=== PATIENT | female | born 1990 | race Caucasian/White ===

== ENCOUNTER → 2018-11-28 12:50 | Outpatient (CLI) | payer OTHER, SELFPAY ==
--- NOTE | 2018-11-28 | DI.RAD.S_ITS ---
PROCEDURE: XR HUMERUS LT 2V INDICATIONS: NEXPLANON PLACEMENT TECHNIQUE: 2 views of the humerus were acquired. COMPARISON: None. FINDINGS: Bones: No fractures or dislocations. No suspicious bony lesions. Soft tissues: No suspicious soft tissue calcifications. A linear 4.5 cm foreign body is present in the medial subcutaneous tissues of the arm at the mid humeral level. IMPRESSION: Linear foreign body consistent with implanted device present in the medial left mid arm arm soft tissues. Dictated by: Shirley Merchant M.D. on 11/28/2018 at 15:23 Approved by: Shirley Merchant M.D. on 11/28/2018 at 15:26
== END ==
PROVIDERS: PCP Family Medicine; Visit Provider Family Medicine
DX: Z30.46 Encounter for surveillance of implantable subdermal contraceptive (principal)
CPT/HCPCS: 73060

== ENCOUNTER 2018-12-22 14:25 | Day surgery (SDC) | payer OTHER, SELFPAY ==
[2018-12-22] VITALS (7 sets, daily range): BP systolic 99–128; BP diastolic 64–79; PULSE 59–67; RESP 11–17; TEMP 36.1–37; O2SAT 95–100; BMI 26.8
--- NOTE | 2018-12-22 14:51 | PM.PREOP ---
Pre-operative Note Interval Note History & Physical reviewed/Exam performed by Physician: Yes Changes to H&P: No H&P completed within 30 days and has changed as indicated here:: see 12/19/18 outpt note
[2018-12-22] MEDS: LACTATED RINGERS 1,000 ML 42 ML IV (15:03)
--- NOTE | 2018-12-22 15:31 | SUR.OPER ---
Supine on padded OR bed, head on pillow, Right arm padded and tucked at side, left arm on large padded arm board controlled by surgeon, legs uncrossed, safety belt at thigh.
[2018-12-22] MEDS: BUPIVACAINE 0.5% W/ EPI (PF) VIAL 30 ML INJ (15:36)
--- NOTE | 2018-12-22 15:55 | SUR.OPER ---
mini c-arm used for case. time = 2:16.
--- NOTE | 2018-12-22 16:08 | P.OP_ITS ---
Operative Date/Time/Diagnoses Date of procedure: 12/22/18 Time of procedure: 16:06 Pre-op diagnosis: Retained Nexplanon Post-op diagnosis: same Procedure & Clinicians Procedure: Removal of retained Nexplanon with fluoroscopy Same procedure as scheduled: Yes Indications: Nexplanon that could not be palpated when attempt at removal Surgeon: Camila Muniz Click Yes if Unassisted: Yes Anesthesia Type: General Operative Notes Findings: Nexplanon in the left arm too deep to be palpable Closure Type: primary Specimen(s): none sent Estimated Blood Loss (mL): 1 Blood products transfused: none Procedure in detail: Patient was brought to the operating room where she underwent general anesthesia. Her left arm was prepped and draped. A check system was reviewed with the staff in the room. Antibiotics were not indicated. Warming was with blankets. Patient had pulsatile stockings in place and functional. Using fluoroscopy the Nexplanon was found. An incision was made in the arm. Additional fluoroscopy was performed to find the depth of the Nexp lanon. The Nexplanon capsule was grasped and incision made in the capsule on the capsule removed intact. The skin was closed with 4 0 Monocryl. The incision was Steri-Stripped. Patient went to recovery room in good condition. A postop check system was reviewed. Complications: none Condition: stable Disposition: same day surgery Plan for aftercare: Follow-up as needed.
[2018-12-22] MEDS: OXYCODONE/ACETAMINOPHEN 5/325 TABLET 1 TAB PO (16:48)
--- NOTE | 2018-12-22 17:22 | SUR.PHASEII ---
[address] Muniz returned to change prescription. Pain relieved w/Rx. No nausea, tolerating PO well. Stable and pleasant. Ambulated to bathroom and voided. Pale pink drainage on left arm dressing unchanged in Phase II.
== END 2018-12-22 17:16 | disposition home or self-care (01) ==
PROVIDERS: PCP Family Medicine; Visit Provider Specialist
PROC: (CPT 57410; principal; 2018-12-22 15:30)
DX: Z45.89 Encounter for adjustment and management of other implanted devices (principal)
CPT/HCPCS: 11982; J1100; J1885; J2250; J2405; J2704; J3010

== ENCOUNTER 2019-11-19 13:00 | Emergency (ER) | payer OTHER, SELFPAY ==
[2019-11-19 13:14] VITALS: BP 134/78; PULSE 71; RESP 14; TEMP 36.6; O2SAT 100; BMI 25.8
[2019-11-19 13:38] LABS: RBC Urine None Seen (0-5/HPF)
[2019-11-19 13:40] LABS: Appearance Urine UA CLEAR; Bilirubin Urine UA NEGATIVE (NEGATIVE); Color Urine UA YELLOW; Glucose Urine UA NEGATIVE (Negative); Ketones Urine UA NEGATIVE (NEGATIVE); Leukocyte Esterase Urine UA NEGATIVE (NEGATIVE); Nitrite Urine UA NEGATIVE (Negative); Occult Blood Urine UA NEGATIVE (Negative); Protein Urine UA NEGATIVE (Negative); Specific Gravity Urine UA 1.015 (1.000-1.035); Urobilinogen Urine UA 0.2 E.U./dL (0.2)
[2019-11-19 13:43] LABS: Pregnancy Test Urine Negative (Negative)
[2019-11-19 13:48] LABS: Bacteria Urine Moderate (10-30); Squamous Epithelial Cell Urine 5-10 /HPF (0-5/HPF); WBC Urine 0-1/HPF (0-5/HPF)
[2019-11-19 13:49] LABS: Culture Indicated Urine Cult Not Indicated
--- NOTE | 2019-11-19 14:22 | PC.NURSE ---
Patient stated that she does not have any symptoms. She is only here because her was here yesterday and tested positive for Chlamydia. She is here for a STI test.
--- NOTE | 2019-11-19 14:46 | ED_ITS ---
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 Her was reported to have been seen here in the emergency department yesterday and was evaluated for epididymitis. His for studies revealed that he was positive for chlamydia. He was initially placed on Cipro which was then changed to doxycycline. The patient is his and is here to be checked for chlamydia. She has had no vaginal itching discharge or discomfort. She has had no vaginal bleeding. Her last menstrual period was 2 weeks ago. She has had no abdominal cramps fever chills sweats, she has had no sore throat nasal congestion shortness of breath cough chest pain palpitations abdominal pain nausea vomiting diarrhea or any urinary symptoms. The patient does not smoke cigarettes drinks alcohol occasionally but does not use any drugs and works as a real estate listing consultant. Related Data Previous Rx's Medication Instructions Recorded oxycodone-acetaminophen 1 tab PO Q4-6H PRN #14 tab 12/22/18 sulfamethoxazole-trimethoprim 1 tab PO BID #14 tab 12/22/18 [Bactrim DS] Allergies Allergy/AdvReac Type Severity Reaction Status Date / Time No Known Drug Allergies Allergy Verified 11/19/19 13:14 Review of Systems Review of Systems Narrative: The patient's review of systems were all negative except for those mentioned in the history of present illness. Patient History Medical History Collar bone fracture (Acute ~2006) Nexplanon in place (Acute) Surgical History History of placement of ear tubes (Acute) alcohol intake frequency: holidays/special occasions only Substance Use Type: does not use Exam Narrative Exam Narrative: PHYSICAL EXAM: CONSTITUTIONAL: Awake, Alert, Oriented, Coherent, Cooperative in NAD. Does not appear toxic or ill. Sitting in a chair without distress. HEAD: AT/NC EENT: PERRL, FROM of eyes, no discharge, no nystagmus MOUTH:Oral mucosa is moist and pink, posterior pharynx is without erythema or exudate. NECK: Supple, no obvious JVD, Trachea is midline without stridor, no palpable LN. SPINE: Palpation of the cervical, Thoracic, Lumbar or Sacral spine reveals no gross deformity or tenderness. No CVA tenderness. THORAX: No deformity, retractions, chest wall tenderness. LUNGS: Clear, symmetrical breath sounds without respiratory distress. HEART: Normal heart tones, regular rhythm and rate without murmur. ABDOMEN: Soft, non-tender, normal bowel sounds without guarding, rebound, rigidity or palpable mass. NEURO: Awake, alert, oriented, conversive, cranial nerves II-XII are symmetrical , moves all 4 extremities and is ambulatory. Initial Vital Signs Initial Vital Signs: Vital Signs Temperature 97.9 F 11/19/19 13:14 Pulse Rate 71 11/19/19 13:14 Respiratory Rate 14 11/19/19 13:14 Blood Pressure 134/78 11/19/19 13:14 Pulse Oximetry 100 11/19/19 13:14 Course Orders Ordered: ED Orders 11/19/19 13:18 Chlamydia Gonorrhea PCR -URINE Stat Test Urine Stat Urinalysis and Microscopic Stat Discontinued Medications Azithromycin (Zithromax) 1,000 mg PO NOW ONE Stop: 11/19/19 14:41 Last Admin: 11/19/19 14:52 Dose: 1,000 mg Documented by: SHERINE Vital Signs Vital signs: Vital Signs - 8 hr 11/19/19 13:14 11/19/19 14:53 Temperature 97.9 F Pulse Rate 71 74 Respiratory Rate 14 14 Blood Pressure 134/78 Blood Pressure [Right Arm] 134/76 Pulse Oximetry 100 100 MDM - Female Genitourinary Lab Data Labs: Lab Results 11/19/19 11/19/19 11/19/19 Range/Units 13:18 13:18 13:18 Urine Color Yellow Urine Appearance Clear Urine pH 7.0 (4.5-8.0) Ur Specific [place] 1.015 (1.000-1.035) Urine Protein Negative (Negative) Urine Glucose (UA) Negative (Negative) g/dL Urine Ketones Negative (NEGATIVE) Urine Occult Blood Negative (Negative) Urine Nitrate Negative (Negative) Urine Bilirubin Negative (NEGATIVE) Urine Urobilinogen 0.2 (0.2) E.U./dL Ur Leukocyte Esterase Negative (NEGATIVE) Urine RBC None seen (0-5/HPF) Urine WBC 0-1/hpf (0-5/HPF) Ur Squamous Epith Cells 5-10 /hpf H (0-5/HPF) Urine Bacteria Moderate (10-30) H (None) Ur Culture Indicated? Cult not indicated Urine Test Negative (Negative) Ur Chlamydia DNA (PCR) Detected H N gonorrhoeae DNA (PCR) Not detected Discharge Plan Departure Patient Disposition: Home Clinical Impression: Chlamydia contact, Chlamydia trachomatis infection Discharge Date/Time: 11/19/19 15:04 Instructions: Chlamydia: The Silent STD, DI for Chlamydia Activity Restrictions/Additional Instructions: 1. Return to the emergency department or follow-up with your primary care physician if you develop a vaginal discharge, that she had the itching or any pelvic pain. You do not need any further antibiotic after the single dose of azithromycin. Prescriptions: No Action sulfamethoxazole-trimethoprim [Bactrim DS] 800-160 mg tablet 1 tab PO BID Qty: 14 RF: 0 oxycodone-acetaminophen 5-325 mg tablet 1 tab PO Q4-6H PRN (Reason: pain) Qty: 14 RF: 0 Referrals: Farhat Alfaro MD [Primary Care Provider] -
[2019-11-19] MEDS: AZITHROMYCIN 250 MG TABLET 1000 MG PO (14:52)
[2019-11-19 14:53] VITALS: BP 134/76; PULSE 74; RESP 14; O2SAT 100
[2019-11-19 15:03] LABS: Urine N gonorrhoeae NOT DETECTED
[2019-11-20 11:36] LABS: Urine Chlamydia DETECTED
== END 2019-11-19 15:04 | disposition home or self-care (01) ==
PROVIDERS: Nurse Practitioner; Emergency Provider Emergency Medicine; PCP Family Medicine
DX: A74.9 Chlamydial infection, unspecified (principal)
CPT/HCPCS: 81001; 81025; 87491; 87591; 99283

== ENCOUNTER → 2020-11-21 15:03 | Outpatient (CLI) | payer OTHER, SELFPAY ==
--- NOTE | 2020-11-21 15:06 | DI.RAD.S_ITS ---
PROCEDURE: XR CHEST 2V INDICATIONS: COUGH TECHNIQUE: 2 views of the chest were acquired. COMPARISON: None. FINDINGS: Surgical changes and devices: Plate and screw fixation of the left clavicle. Lungs and pleura: No pleural effusions or pneumothorax. Mild increased opacity seen in the left lung base Mediastinum: Mediastinal contours are normal. Heart size is normal. Bones and chest wall: No suspicious bony abnormalities. Soft tissues appear unremarkable. IMPRESSION: Mild focal increased opacity in the left lung base raising possibility of early bronchopneumonia. If there is persistent clinical diagnostic uncertainty, continued surveillance with short interval radiographic followup after treatment is recommended. Dictated by: Dayron Gonzales M.D. on 11/21/2020 at 16:07 Approved by: Dayron Gonzales M.D. on 11/21/2020 at 16:08
== END ==
PROVIDERS: PCP Family Medicine; Referring Provider Family Medicine; Visit Provider Family Medicine
DX: R05 Cough (principal)
CPT/HCPCS: 71046

== ENCOUNTER → 2021-01-24 15:29 | Outpatient (CLI) | payer OTHER, SELFPAY ==
[2021-01-24 16:59] LABS: Add Manual Diff / Slide Review NO; Basophils Absolute Auto 0 /uL (0-100); Basophils Percent Auto 0.6 % (0-2); Eosinophils Absolute Auto 0 /uL (0-450); Eosinophils Percent Auto 0.7 % (2-4); Hematocrit 43.8 % (36-46); Hemoglobin 15.1 g/dL (12.0-16.0); Lymphocytes Absolute Auto 1900 /uL (1100-4500); Lymphocytes Percent Auto 33.2 % (25-40); Mean Corpuscular HGB Conc 34.5 % (30-36); Mean Corpuscular Hemoglobin 32.9 PG (26-34); Mean Corpuscular Volume 95.4 fL (80-100); Monocytes Absolute Auto 600 /uL (0-900); Monocytes Percent Auto 11.3 % (3-14); Neutrophils Absolute Auto 3100 /uL (1500-7000); Neutrophils Percent Auto 54.2 % (50-75); Platelet Count 138 X10^3/uL (150-400); Red Blood Cell Count 4.59 X10^6/uL (4.0-5.2); White Blood Cell Count 5.7 X10^3/uL (4.5-11.0)
[2021-01-24 17:27] LABS: Alanine Aminotransferase 22 IU/L (<35); Albumin 4.7 g/dL (3.5-5.0); Albumin Globulin Ratio 1.5 (1.0-2.8); Alkaline Phosphatase 51 U/L (38-126); Aspartate Aminotransferase 41 IU/L (14-36); BUN Creatinine Ratio 19.5 (6-22); Bilirubin Total 0.7 mg/dL (0.2-1.3); Blood Urea Nitrogen 15 mg/dL (7-17); Calcium 9.6 mg/dL (8.4-10.2); Carbon Dioxide 24 mmol/L (22-32); Chloride 104 mmol/L (98-107); Estimated Glomerular Filt Rate > 60.0 mL/min (>60); Globulin 3.1 g/dL (1.7-4.1); Glucose 79 mg/dL (70-100); HEMOLYSIS 17 (0-50); Potassium 3.6 mmol/L (3.4-5.1); Sodium 139 mmol/L (137-145); Total Protein 7.8 g/dL (6.3-8.2)
[2021-01-24 17:54] LABS: Thyroid Stimulating Hormone 0.594 uIU/mL (0.47-4.68)
== END ==
PROVIDERS: PCP Family Medicine; Referring Provider Internal Medicine Gastroenterology; Visit Provider Internal Medicine Gastroenterology
DX: K59.00 Constipation, unspecified (principal)
CPT/HCPCS: 36415; 80053; 84443; 85025

== ENCOUNTER 2022-06-27 11:54 | Emergency (ER) | payer OTHER, SELFPAY ==
[2022-06-27 12:21] VITALS: BP 126/77; PULSE 67; RESP 15; TEMP 36.3; O2SAT 100; BMI 27.9
--- NOTE | 2022-06-27 12:30 | DI.CT.S_ITS ---
PROCEDURE: CT HEAD/BRAIN WO CON INDICATIONS: numbness in extremities since yesterday TECHNIQUE: Noncontrast 4.5 mm thick angled axial sections acquired from the foramen magnum to the vertex, with coronal and sagittal reformats. For radiation dose reduction, the following was used: automated exposure control, adjustment of mA and/or kV according to patient size. COMPARISON: None. FINDINGS: Image quality: Excellent. CSF spaces: Basal cisterns are patent. No extra-axial fluid collections. Ventricles are normal in size and shape. Brain: No midline shift. No intracranial masses or hemorrhage. [place]-white matter interface is normal. Skull and face: Calvarium and visualized facial bones are intact, without suspicious lesions. Sinuses: Visualized sinuses and mastoids are clear. IMPRESSION: No acute intracranial abnormality. Dictated by: Ryland Stapleton M.D. on 06/27/2022 at 12:56 Approved by: Ryland Stapleton M.D. on 06/27/2022 at 12:58
[2022-06-27 14:55] VITALS: BP 135/73; PULSE 66; O2SAT 100
--- NOTE | 2022-06-27 15:59 | ED_ITS ---
HPI - Neuro Symptoms/Deficit General Chief Complaint: Neuro Symptoms/Deficit Stated Complaint: Left side numbness Time Seen by Provider: 06/27/22 15:46 Source: patient Mode of arrival: Ambulatory Limitations: no limitations History of Present Illness HPI Narrative: Patient developed numbness and edema to her left medial foot yesterday. She later had shooting pain in her left lateral thigh. She is no specific weakness in lower extremity. 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 Currently she is weakness limited to the ulnar nerve distribution of her left hand. This is probably improved since this morning. She also had pain shooting up her ulnar arm, to the axilla and into the scapular region of her back. This is not as severe as this morning. She is had no head or spine injuries. 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 The vest is light and comfortable. The belt his quite cumbersome and uncomfortable. She is no history of hypertension, no history suggested CVA. She is no chronic neurologic deficits. She denies recent illness. She is had no URI symptoms, rhinorrhea, or sore throat. She is no cough. She is no fever or chills. On Anticoagulants: No Related Data Previous Rx's Medication Instructions Recorded clomiphene citrate 50 mg tablet 50 mg PO DAILY Infertility 5 days 01/25/21 #5 tabs methylprednisolone 4 mg tablets in See Rx Instructions PO .COMPLEX 06/27/22 a dose pack (Medrol (Justin)) #21 ea Allergies Allergy/AdvReac Type Severity Reaction Status Date / Time No Known Drug Allergies Allergy Verified 06/27/22 12:21 Review of Systems Constitutional Constitutional: Reports as per HPI, Denies body ache(s), Denies chills, Denies fatigue and Denies fever(s) Eyes Eyes: Denies blurry vision, Denies change in vision and Denies diplopia ENT Ears, Nose, Mouth, and Throat: Denies vertigo, Denies dizziness, Denies sinus pain and Denies other (No headache) Cardiovascular Cardiovascular: Denies chest pain, Denies rapid heart rate and Denies irregular heart rhythm Respiratory Respiratory: Denies chest congestion and Denies cough Gastrointestinal Gastrointestinal: Denies abdominal pain, Denies constipation, Denies nausea and Denies vomiting Genitourinary Genitourinary: Denies dysuria and Denies flank pain Musculoskeletal Musculoskeletal: Reports back pain Comments: See HPI Integumentary/Breasts Skin/Breast: Denies rash Neurologic Neurologic: Reports as per HPI, Denies confusion, Denies vertigo and Denies dizziness Psychiatric Psychiatric: Denies confusion and Denies depression Endocrine Endocrine: Denies fatigue Hematologic/Lymphatic On Anticoagulants: No Patient History Medical History (Updated 06/27/22 @ 16:26 by Farhat Oates MD) Collar bone fracture (~2006) No chronic diseases present Surgical History History of placement of ear tubes Social History household members: spouse and children Smoking Status: Never smoker Smoking Status: Never smoker alcohol intake frequency: holidays/special occasions only Substance Use Type: does not use Exam Initial Vital Signs Initial Vital Signs: Vital Signs Temperature 97.3 F L 06/27/22 12:21 Pulse Rate 67 06/27/22 12:21 Respiratory Rate 15 06/27/22 12:21 Blood Pressure 126/77 06/27/22 12:21 Pulse Oximetry 100 06/27/22 12:21 Oxygen Delivery Method 06/27/22 12:21 Const General: cooperative, healthy appearing, comfortable, well developed and well groomed [facility] Head: normal to inspection Eyes Conjunctivae: conjunctivae normal Sclera: sclerae normal Pupils: PERRL and pupil size on the right 55 EOM: EOM intact bilaterally Neck Neck: No JVD Thyroid: no masses Resp Auscultation: clear to auscultation bilaterally Cardio Rate: regular rate Rhythm: regular rhythm Heart Sounds: S1 normal, S2 normal and no murmurs Back/Spine/Pelvis Back: normal to inspection Cervical Spine: normal cervical lordosis, cervical ROM normal and other (No tenderness.) Skin General: no rashes or lesions noted Neuro General: patient alert, patient awake and patient oriented x3 Other: Decreased light sensation specifically to the ulnar nerve in the left L5 nerve. Decreased motor function to the left ulnar nerve. Lower extremity reflexes are normal. Gait is normal. She is 2 specific peripheral nerve deficits on the left side, she is no suggestion of CVA no central lesion. There is no diffuse deficit. Extrem General: normal to inspection, full ROM and No muscle atrophy Other: Negative SLR bilaterally. Course Course Course Narrative: The patient was discussed with her PCM. He had the exact same exam earlier today. It is noted that her head CT is negative. She is focal neuropathy, Decadron will be started. She has a heavy bouts she must wear at work and when driving. I am going to put her on light duty. Dr. Drew and I discussed potential follow-up, including nerve conduction studies and/or head/cervical MRI. He will arrange follow-up with the patient next week. Orders Ordered: ED Orders 06/27/22 12:30 CT head/brain wo con Stat Discontinued Medications Dexamethasone (Dexamethasone 10 Mg/Ml Vial) 10 mg PO NOW ONE Stop: 06/27/22 16:12 Vital Signs Vital signs: Vital Signs - 8 hr 06/27/22 12:21 06/27/22 14:55 Temperature 97.3 F L Pulse Rate 67 66 Respiratory Rate 15 Blood Pressure 126/77 135/73 Pulse Oximetry 100 100 Oxygen Delivery Method Room Air Room Air MDM - Neuro Symptoms/Deficit Imaging Data CT scan - head: Radiologist's Impression: Normal. Discharge Plan Departure Patient Disposition: Home Clinical Impression: Peripheral neuropathy Instructions: DI for Peripheral Neuropathy Activity Restrictions/Additional Instructions: Limited duty for the next 5 days. Specifically, you should not be wearing your work belt. Medrol Dosepak, followed package instructions. Dr. Alfaro will arrange follow-up to re-evaluate your next week. Return here as needed. Prescriptions: New methylprednisolone [Medrol (Justin)] 4 mg tablets,dose pack See Rx Instructions .ROUTE .COMPLEX Qty: 21 0RF Rx Instructions: orally per package directions No Action clomiphene citrate 50 mg tablet 50 mg PO DAILY 5 Days Qty: 5 1RF Referrals: Farhat Alfaro MD [Primary Care Provider] - Stand Alone Forms: Work Release Note
[2022-06-27] MEDS: DEXAMETHASONE 10 MG/ML VIAL PO ×2 (16:50)
[2022-06-27 16:54] VITALS: BP 139/84; PULSE 68; O2SAT 99
== END 2022-06-27 16:55 | disposition home or self-care (01) ==
PROVIDERS: Emergency Provider Emergency Medicine; PCP Family Medicine
DX: G62.9 Polyneuropathy, unspecified (principal)
CPT/HCPCS: 70450; 99283; J1100

== ENCOUNTER 2022-09-13 09:14 | Outpatient (CLI) | payer OTHER, SELFPAY | END 2022-09-21 14:35 | disposition home or self-care (01) | LOC: PHYS 09:15 | PROVIDERS: Absent Provider Family Medicine; Family Provider Family Medicine; PCP Family Medicine; Referring Provider Family Medicine; Visit Provider Family Medicine | DX: R29.898 Other symptoms and signs involving the musculoskeletal system (principal) | CPT/HCPCS: 95886; 95909 ==

== ENCOUNTER → 2023-10-10 11:32 | Outpatient (CLI) | payer OTHER, SELFPAY ==
[2023-10-10 12:37] LABS: Glucose 87 mg/dL (70-100)
[2023-10-10 13:09] LABS: Thyroid Stimulating Hormone 0.437 uIU/mL (0.47-4.68)
[2023-10-12 07:26] LABS: Insulin Level Total 7.5 uIU/mL (2.6-24.9)
== END ==
PROVIDERS: Family Provider Family Medicine; PCP Family Medicine; Referring Provider Obstetrics & Gynecology; Visit Provider Obstetrics & Gynecology
DX: E28.2 Polycystic ovarian syndrome (principal); N92.1 Excessive and frequent menstruation with irregular cycle
CPT/HCPCS: 36415; 82947; 83525; 84439; 84443